=== PATIENT | male | born 1960 | race Caucasian/White ===

== ENCOUNTER 2021-04-06 00:34 | Emergency (ER) | payer OTHER ==
[2021-04-06 00:43] VITALS: BP 156/82; PULSE 93; RESP 16; TEMP 98.3
[2021-04-06] MEDS ORDERED: CEPHALEXIN 500 MG CAP PO STA (01:08)
[2021-04-06] MEDS ORDERED: ACETAMINOPHEN TAB 500 MG TAB PO STA (01:08)
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
== END 2021-04-06 02:10 | disposition home or self-care (01) ==
LOC: EC 00:34
DX: T25.222A Burn of second degree of left foot, initial encounter (principal); T25.221A Burn of second degree of right foot, initial encounter; F17.210 Nicotine dependence, cigarettes, uncomplicated; F12.90 Cannabis use, unspecified, uncomplicated; X08.8XXA Exposure to other specified smoke, fire and flames, initial encounter
CPT/HCPCS: 99283